=== PATIENT | female | born 2000 | race Two or more races ===

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

== ENCOUNTER 2020-01-23 22:18 | Emergency (ER) | payer MEDICAID ==
[~2020-01-23] VITALS: Ht 157.5 cm; Wt 45.2 kg
[2020-01-24 01:05] VITALS: BP 110/75
== END 2020-01-24 01:07 | disposition home or self-care (01) ==
LOC: ER 22:21
DX: R07.0 Pain in throat (principal)
CPT/HCPCS: 99281